=== PATIENT | female | born 1945 | race Caucasian/White ===

== ENCOUNTER → 2017-09-07 | Outpatient (CLI) | payer BC, MEDICARE ==
[~2017-09-07] MED LIST: AMLO10TA2 PO; BUME2TAB PO; CALC0.25 PO; COMB0.2S EACH EYE; DOCU1CAP26 PO; FURO20TA PO; HYDR-3516 PO; HYDR-3801 PO; METO50TA PO; ROSU20 PO
[2017-09-07 13:58] LABS: HEMATOCRIT 35.3 % (35.0-46.0); HEMOGLOBIN 12.2 GM/DL (11.6-15.3); MEAN CELL VOLUME 93.6 FL (80.0-100.0); MEAN CORPUSCULAR HEMOGLOBIN 32.2 PG (27.0-34.0); MEAN CORPUSCULAR HGB CONC 34.5 % (32.0-36.0); MEAN PLATELET VOLUME 8.3 FL (7.0-11.0); PLATELET COUNT 244 TH/MM3 (150-450); RED BLOOD COUNT 3.77 MIL/MM3 (4.00-5.30); RED CELL DISTRIBUTION WIDTH 13.3 % (11.6-17.2); WHITE BLOOD COUNT 7.6 TH/MM3 (4.0-11.0)
[2017-09-07 14:02] LABS: BILIRUBIN, URINE NEG (NEG); BLOOD, URINE NEG (NEG); GLUCOSE,URINE NEG (NEG); HYALINE CAST, URINE 1 /lpf (RARE); KETONE, URINE NEG (NEG); NITRITE,URINE NEG (NEG); SQUAMOUS EPITHELIAL CELL URINE 4 /hpf (0-5); URINE COLOR LIGHT-YELLOW (YELLW/STRAW); URINE LEUKOCYTE ESTERASE NEG (NEG)
[2017-09-07 14:22] LABS: ALBUMIN 3.7 GM/DL (3.4-5.0); AST (GOT) 56 U/L (15-37); BICARBONATE 23.9 MEQ/L (21.0-32.0); BLOOD UREA NITROGEN 33 MG/DL (7-18); CHLORIDE 97 MEQ/L (98-107); GLOMERULAR FILTRATION RATE 14 ML/MIN (>89); GLUCOSE,FASTING 87 MG/DL (74-99); SODIUM (NA) 132 MEQ/L (136-145)
[2017-09-07 14:25] LABS: ALKALINE PHOSPHATASE 88 U/L (45-117); ALT (GPT) 48 U/L (10-53); TOTAL BILIRUBIN ADULT 0.4 MG/DL (0.2-1.0); TOTAL PROTEIN 7.7 GM/DL (6.4-8.2)
--- NOTE | 2017-09-09 01:17 | EKG ---
Date Performed: 09/07/2017 Time Performed: 13:10:25 PTAGE: 71 years EKG: SINUS BRADYCARDIA POSSIBLE LEFT ATRIAL ENLARGEMENT NONSPECIFIC T-WAVE ABNORMALITY BORDERLIN E ECG NO PREVIOUS TRACING DOCTOR: Daniel Tavares Interpretating Date/Time 09/09/2017 01:15:17
== END ==
LOC: CPRE 12:44
PROVIDERS: ATTEND Thoracic Surgery (Cardiothoracic Vascular Surgery)
DX: Z01.812 Encounter for preprocedural laboratory examination (principal); Z01.810 Encounter for preprocedural cardiovascular examination; C34.91 Malignant neoplasm of unspecified part of right bronchus or lung; R94.31 Abnormal electrocardiogram [ECG] [EKG]
CPT/HCPCS: 36415; 80053; 81001; 85027; 85610; 85730; 93005

== ENCOUNTER 2017-09-11 05:16 | Inpatient (IN) | payer MEDICARE ==
[2017-09-11] VITALS (12 sets, daily range): BP systolic 105–153; BP diastolic 67–72; PULSE 46–53; RESP 16–18; TEMP 97.7; O2SAT 97–99
[~2017-09-11] VITALS: Ht 158.8 cm; Wt 55.0 kg
[~2017-09-11 05:16] MED LIST changes: -BUME2TAB PO; -DOCU1CAP26 PO; -HYDR-3516 PO; -HYDR-3801 PO
[2017-09-11] MEDS ORDERED: LACTATED RINGER'S 1000 ML IV PRN (05:45)
[2017-09-11] MEDS ORDERED: METOPROLOL TARTRATE 25 MG TAB PO PRN (05:45)
[2017-09-11] MEDS ORDERED: SODIUM CHLORID 0.9% 500 ML IV PRN (05:45)
[2017-09-11] MEDS ORDERED: POVIDONE IODINE 5% (ANTISEPSIS KIT) 4 APPLICATIONS EACH NARE PRN (05:45)
[2017-09-11] MEDS ORDERED: CHLORHEXIDINE GLUCONATE 2 % 1 PACK (2 CLOTHS) TOPICAL PRN (05:45)
[2017-09-11] MEDS ORDERED: ACETAMINOPHEN 1000 MG/100 ML 100 ML IV ONE (07:04)
[2017-09-11] MEDS ORDERED: SUGAMMADEX SODIUM 200 MG/2 ML VIAL IV PUSH ONE (07:04)
[2017-09-11] MEDS ORDERED: ceFAZolin 2 GM PREMIX 50 ML ONE (08:22)
[2017-09-11] MEDS ORDERED: BUPIVACAINE LIPOSO PF 1.3% INJ 20 ML, DEXAMETHASONE INJ 4 MG, MORPHINE INJ 8 MG in SODI... IRRIGATION ONE (09:00)
[2017-09-11] MEDS ORDERED: Post-op Orders (for Pharmacy) OTHER ONE (10:00)
[2017-09-11] MEDS ORDERED: SODIUM CHLORIDE 0.9% FLUSH 10 ML FLUSH IV FLUSH PRN (10:00)
[2017-09-11] MEDS ORDERED: ONDANSETRON HCL 4 MG/2 ML VIAL IV PUSH PRN (10:00)
[2017-09-11] MEDS ORDERED: MAGNESIUM HYDROXIDE SUSP 30 ML CUP PO PRN (10:00)
[2017-09-11] MEDS ORDERED: RESP: ALBUTEROL 2.5 MG/3 ML NEB (PRN) NEB (10:00)
[2017-09-11] MEDS ORDERED: MORPHINE SULFATE 30 MG/30 ML PCA IV SCH (10:00)
[2017-09-11] MEDS ORDERED: ACETAMINOPHEN 325 MG TAB PO PRN (10:00)
[2017-09-11] MEDS ORDERED: NALOXONE HCL 0.4 MG/ML AMP IV PUSH PRN (10:00)
[2017-09-11] MEDS ORDERED: DO NOT ADM ANY ANTICOAGULANT DRUGS PRN (10:35)
[2017-09-11] MEDS ORDERED: *morphine SULFATE 10 MG/ML PERIprocedure ONLY ONE ×2 (10:42→10:52)
[2017-09-11] MEDS ORDERED: MIDAZOLAM HCL 2 MG/2 ML VIAL ONE (10:43)
--- NOTE | 2017-09-11 11:15 | RADRPT ---
EXAM DATE/TIME: 09/11/2017 10:39 [facility] COMPARISON: No previous studies available for comparison. INDICATIONS : Status-post Thoracotomy. MEDICAL HISTORY : None. SURGICAL HISTORY : Thoracotomy. ENCOUNTER: Initial ACUITY: 1 day PAIN SCORE: Non-responsive. LOCATION: Bilateral chest FINDINGS: A single AP portable view of the chest was obtained and demonstrates a right-sided chest tube in plac e with no visualized pneumothorax. Subcutaneous emphysema is noted over the right lateral chest wall. Multiple surgical clips are present in the right axilla. There are no confluent infiltrates or effus ions. The heart size is at the upper limits of normal. Atherosclerotic calcifications are present in the aorta. There are postsurgical changes in the right hilar region. CONCLUSION: 1. Status post right thoracotomy with chest tube in place and no visualized pneumothorax. 2. No acute cardiopulmonary disease. Gabriel Wolfe MD on September 11, 2017 at 11:11 Board Certified Radiologist. This report was verified electronically.
[2017-09-11] MEDS: RESP: ALBUTEROL 2.5 MG/3 ML NEB (SCH) NEB ×2 (11:45→19:54)
[2017-09-11] MEDS ORDERED: NORMOSOL R INJ 1,000 ML IV ONE (12:00)
[2017-09-11] MEDS ORDERED: PROPOFOL 200 MG/20 ML AMP IV ONE (12:00)
[2017-09-11] MEDS ORDERED: hydrALAZINE HCL 20 MG/ML VIAL IV ONE (12:00)
[2017-09-11] MEDS ORDERED: LIDOCAINE HCL 1% PF 5 ML SYRINGE OTHER ONE (12:00)
[2017-09-11] MEDS ORDERED: ROCURONIUM INJ 50 MG/5 ML SYRINGE IV PUSH ONE (12:00)
[2017-09-11] MEDS ORDERED: ONDANSETRON HCL 4 MG/2 ML VIAL IV ONE (12:00)
[2017-09-11] MEDS ORDERED: GLYCOPYRROLATE 1 MG/5 ML SYRINGE IV PUSH ONE (12:00)
--- NOTE | 2017-09-11 12:33 | PD.OP ---
cc: Tristin Ray MD; Mitra Marcus MD Operative Report Date of Surgery: Sep 11, 2017 Preoperative Diagnosis: Postoperative Diagnosis: Procedure: 1. Right Posterolateral Muscle Sparing Thoracotomy 2. Right Middle Lobectomy 3. Mediastinal Lymph Node Dissection 4. Lysis of Adhesions 5. Intercostal Nerve Block Surgeon: Tristin Ray House Fellow(s): Osman Barkley Operation and Findings: PREOPERATIVE DIAGNOSIS 1. Right Lung Cancer 2. COPD 3. Chronic Kidney Disease 4. Breast Cancer POSTOPERATIVE DIAGNOSIS 1. Right Middle Lobe Lung Cancer 2. COPD 3. Chronic Kidney Disease 4. Breast Cancer 5. Radiation Induced Adhesions PROCEDURES 1. Right Posterolateral Muscle Sparing Thoracotomy 2. Right Middle Lobectomy 3. Mediastinal Lymph Node Dissection 4. Lysis of Adhesions 5. Intercostal Nerve Block SURGEON Tristin Ray MD TELEMEDICINE PHYSICIAN TRACIE Zarate ANESTHESIA General double-lumen endotracheal. LEAD CARE MANAGER RAMON Jacobs MD DRAINS [address] COUNTS Needle, sponge, and instrument counts were correct. COMPLICATIONS None. INDICATION FOR PROCEDURE The patient is a 71 yo lady with right mid lung malignancy presenting for surgical resection of above pathology. DESCRIPTION OF PROCEDURE The patient was brought to the operating suite and placed in supine position. Following satisfactory induction of general double-lumen endotracheal anesthesia , the patient was placed in the left lateral decubitus position. The right chest and surrounding area was then prepped and draped in the usual sterile fashion. A standard muscle-sparing posterolateral thoracotomy was performed and the serratus anterior muscle spared. The pleural space was entered. Exploration of the chest revealed significant radiation pneumonitis involving the right middle and upper lobes towards the hilum with associated mediastinal and hilar adhesions. The adhesions were divided and the entire right lung freed circumferentially. The mass could be easily palpated in the middle lobe. The inferior pulmonary ligament was divided. The pulmonary arterial supply to the middle lobe was identified, dissected free and divided as was the pulmonary venous supply. The bronchus was then dissected free, clamped and the remaining lung was insufflated without any difficulty. Lymph node dissections of level 3, 4, 7, 9 and 10 were performed along with the course of this removal. Some of these were retained with the specimen. Specimen was removed from the chest. The remaining lung was submerged under sterile water and inflated. Frozen section analysis revealed clear margins. No air leaks were identified. At this point the closure was undertaken. A 32-Irish chest tube was placed. Intercostal nerve block was performed at the level of the incision and 3 rib spaces above and below using Exparel with Decadron solution. The pericostal space was approximated with interrupted #1 Vicryl sutures in a pericostal fashion. The serratus fascia and Latissimus dorsi were closed with running 0-Vicryl and the remaining wounds closed with 3-0, and 4-0 Monocryl. The patient tolerated the procedure well and postoperatively went to the PACU in stable condition. Tristin Ray MD Sep 11, 2017 12:33
[2017-09-11] MEDS ORDERED: DIMETHICONE/OXYBENZONE/PADMIATE LIP BALM 4.25 GM TOPICAL ONE (12:57)
[2017-09-11] MEDS: PCA - TOTAL MG MORPHINE DELIVERED PER SHIFT SCH ×2 (14:00→22:00)
[2017-09-11] MEDS: ACETAMINOPHEN 1000 MG/100 ML 100 ML IV SCH ×2 (16:18→23:30)
[2017-09-11] MEDS: DOCUSATE CALCIUM 240 MG CAP PO SCH (21:00)
[2017-09-11] MEDS: TIMOLOL MALEATE 0.5% OPHT SOLN 5 ML BTL EACH EYE SCH (21:00)
[2017-09-11] MEDS: BRIMONIDINE TARTRATE 0.2% OPHT SOLN 5 ML BTL EACH EYE SCH (21:00)
[2017-09-11] MEDS: PANTOPRAZOLE SOD 40 MG DELAYED RELEASE TAB PO SCH (23:25)
[2017-09-11] MEDS: SODIUM CHLORIDE 0.9% FLUSH 10 ML FLUSH IV FLUSH SCH (23:31)
[2017-09-12] VITALS (29 sets, daily range): BP systolic 135–159; BP diastolic 51–69; PULSE 44–59; RESP 16–19; TEMP 97.5–98.6; O2SAT 92–99
[2017-09-12] MEDS: ACETAMINOPHEN 1000 MG/100 ML 100 ML IV SCH ×2 (03:00→09:25)
[2017-09-12] MEDS: RESP: ALBUTEROL 2.5 MG/3 ML NEB (SCH) NEB ×4 (03:00→19:58)
[2017-09-12 04:40] LABS: AUTOMATED NEUTROPHIL # 8.8 TH/MM3 (1.8-7.7); BASOPHIL % 0.3 % (0.0-2.0); HEMATOCRIT 32.5 % (35.0-46.0); HEMOGLOBIN 10.9 GM/DL (11.6-15.3); LYMPH % 5.2 % (9.0-44.0); LYMPHOCYTE # 0.5 TH/MM3 (1.0-4.8); MEAN CORPUSCULAR HEMOGLOBIN 31.8 PG (27.0-34.0); MEAN CORPUSCULAR HGB CONC 33.4 % (32.0-36.0); MEAN PLATELET VOLUME 8.1 FL (7.0-11.0); MONO % 9.8 % (0.0-8.0); NEUT % 84.7 % (16.0-70.0); PLATELET COUNT 232 TH/MM3 (150-450); RED BLOOD COUNT 3.42 MIL/MM3 (4.00-5.30); RED CELL DISTRIBUTION WIDTH 13.4 % (11.6-17.2); WHITE BLOOD COUNT 10.3 TH/MM3 (4.0-11.0)
--- NOTE | 2017-09-12 04:45 | RADRPT ---
EXAM DATE/TIME: 09/12/2017 04:05 [facility] COMPARISON: CHEST SINGLE AP, September 11, 2017, 10:39. INDICATIONS : Shortness of breath, possible pulmonary disease. MEDICAL HISTORY : None. SURGICAL HISTORY : Thoracotomy ENCOUNTER: Subsequent ACUITY: 2 days PAIN SCORE: 3/10 LOCATION: Right chest FINDINGS: Right-sided chest tube and subcutaneous emphysema again seen. Right axillary clips. I do not see a pn eumothorax. Multiple right-sided rib fractures are noted. There is atelectasis at the left lung base. Cardiomegaly, and right hilar enlargement noted unchanged. CONCLUSION: No significant change has occurred. Elvin Ríos MD on September 12, 2017 at 4:41 Board Certified Radiologist. This report was verified electronically.
[2017-09-12 05:07] LABS: CALCIUM 8.4 MG/DL (8.5-10.1); CREATININE 3.52 MG/DL (0.50-1.00)
[2017-09-12] MEDS: FUROSEMIDE 20 MG TAB PO SCH ×3 (09:00→09:37)
[2017-09-12] MEDS: TIMOLOL MALEATE 0.5% OPHT SOLN 5 ML BTL EACH EYE SCH ×2 (09:00→20:57)
[2017-09-12] MEDS: BRIMONIDINE TARTRATE 0.2% OPHT SOLN 5 ML BTL EACH EYE SCH ×2 (09:00→20:57)
[2017-09-12] MEDS: METOPROLOL TARTRATE 50 MG TAB PO SCH (09:00)
[2017-09-12] MEDS: ATORVASTATIN 40 MG TAB PO SCH (09:25)
[2017-09-12] MEDS: SODIUM CHLORIDE 0.9% FLUSH 10 ML FLUSH IV FLUSH SCH ×2 (09:26→20:57)
--- NOTE | 2017-09-12 10:19 | PD.CAR.PN ---
CVT Progress Note Subjective/Hospital Course: 71 yo lady with newly diagnosed right middle lobe lung cancer 2/2 PROCEDURES 1. Right Posterolateral Muscle Sparing Thoracotomy 2. Right Middle Lobectomy 3. Mediastinal Lymph Node Dissection 4. Lysis of Adhesions 5. Intercostal Nerve Block 2/3 Doing well Small intermittent air-leak with valsalva Continue Ct to suction Ambulate Objective: Vital Signs Date Time Temp Pulse Resp B/P (MAP) Pulse Ox O2 Delivery O2 Flow Rate FiO2 09/12/17 08:56 95 21 09/12/17 05:00 46 09/12/17 04:00 48 09/12/17 03:00 98.1 52 16 153/68 (96) 99 09/12/17 03:00 49 09/12/17 02:00 48 09/12/17 01:00 48 09/12/17 00:08 97.5 51 16 153/51 (85) 99 09/12/17 00:00 50 09/11/17 23:00 49 09/11/17 22:00 46 09/11/17 22:00 16 09/11/17 21:00 46 09/11/17 20:15 97.7 47 16 153/72 (99) 98 09/11/17 20:00 50 09/11/17 19:57 99 Nasal Cannula 2.00 09/11/17 19:00 49 09/11/17 18:01 51 09/11/17 17:00 46 09/11/17 16:00 46 09/11/17 15:01 97.7 53 18 105/67 (80) 97 09/11/17 15:00 50 09/11/17 14:00 16 09/11/17 13:30 46 16 114/55 (74) 96 Nasal Cannula 2 09/11/17 13:00 50 16 135/63 (87) 96 Nasal Cannula 2 09/11/17 12:30 48 16 102/52 (69) 96 Nasal Cannula 2 09/11/17 12:00 46 16 95/50 (65) 96 Nasal Cannula 2 09/11/17 11:45 46 16 95/51 (66) 96 Nasal Cannula 2 09/11/17 11:30 48 16 100/53 (69) 96 Nasal Cannula 2 09/11/17 11:15 48 16 94/53 (67) 96 Nasal Cannula 2 09/11/17 11:00 52 16 103/57 (72) 97 Nasal Cannula 2 09/11/17 10:45 56 16 126/60 (82) 97 Nasal Cannula 2 09/11/17 10:35 97.4 54 16 123/58 (79) 100 Nasal Cannula 2 Labs: Laboratory Tests Test 09/12/17 04:16 White Blood Count 10.3 TH/MM3 (4.0-11.0) Red Blood Count 3.42 MIL/MM3 (4.00-5.30) Hemoglobin 10.9 GM/DL (11.6-15.3) Hematocrit 32.5 % (35.0-46.0) Mean Corpuscular Volume 95.0 FL (80.0-100.0) Mean Corpuscular Hemoglobin 31.8 PG (27.0-34.0) Mean Corpuscular Hemoglobin Concent 33.4 % (32.0-36.0) Red Cell Distribution Width 13.4 % (11.6-17.2) Platelet Count 232 TH/MM3 (150-450) Mean Platelet Volume 8.1 FL (7.0-11.0) Neutrophils (%) (Auto) 84.7 % (16.0-70.0) Lymphocytes (%) (Auto) 5.2 % (9.0-44.0) Monocytes (%) (Auto) 9.8 % (0.0-8.0) Eosinophils (%) (Auto) 0.0 % (0.0-4.0) Basophils (%) (Auto) 0.3 % (0.0-2.0) Neutrophils # (Auto) 8.8 TH/MM3 (1.8-7.7) Lymphocytes # (Auto) 0.5 TH/MM3 (1.0-4.8) Monocytes # (Auto) 1.0 TH/MM3 (0-0.9) Eosinophils # (Auto) 0.0 TH/MM3 (0-0.4) Basophils # (Auto) 0.0 TH/MM3 (0-0.2) CBC Comment DIFF FINAL Differential Comment Blood Urea Nitrogen 40 MG/DL (7-18) Creatinine 3.52 MG/DL (0.50-1.00) Random Glucose 106 MG/DL (74-106) Calcium Level 8.4 MG/DL (8.5-10.1) Sodium Level 133 MEQ/L (136-145) Potassium Level 4.3 MEQ/L (3.5-5.1) Chloride Level 97 MEQ/L (98-107) Carbon Dioxide Level 24.0 MEQ/L (21.0-32.0) Anion Gap 12 MEQ/L (5-15) Estimat Glomerular Filtration Rate 13 ML/MIN (>89) Result Diagram: 09/12/17 0416 09/12/17 0416 (1) Lung cancer, middle lobe (2) S/P lobectomy of lung (3) CKD (chronic kidney disease) Tristin Ray MD Sep 12, 2017 10:19
[2017-09-12] MEDS: PCA - TOTAL MG MORPHINE DELIVERED PER SHIFT SCH ×2 (14:00→22:10)
[2017-09-12] MEDS: PANTOPRAZOLE SOD 40 MG DELAYED RELEASE TAB PO SCH (20:57)
[2017-09-12] MEDS: DOCUSATE CALCIUM 240 MG CAP PO SCH (20:57)
[2017-09-13] VITALS (28 sets, daily range): BP systolic 133–178; BP diastolic 2–77; PULSE 47–62; RESP 18–22; TEMP 97.4–98.3; O2SAT 92–98
[2017-09-13] MEDS: RESP: ALBUTEROL 2.5 MG/3 ML NEB (SCH) NEB ×4 (03:51→20:05)
[2017-09-13] MEDS: PCA - TOTAL MG MORPHINE DELIVERED PER SHIFT SCH ×3 (06:00→22:00)
--- NOTE | 2017-09-13 08:51 | PD.CAR.PN ---
CVT Progress Note Subjective/Hospital Course: 71 yo lady with newly diagnosed right middle lobe lung cancer 2/2 PROCEDURES 1. Right Posterolateral Muscle Sparing Thoracotomy 2. Right Middle Lobectomy 3. Mediastinal Lymph Node Dissection 4. Lysis of Adhesions 5. Intercostal Nerve Block 09/12 Doing well Small intermittent air-leak with valsalva Continue Ct to suction Ambulate 09/13 No air-leak. Place on water-seal Likely remove CT tomorrow Awaiting pathology report Gentle diuresis Objective: Vital Signs Date Time Temp Pulse Resp B/P (MAP) Pulse Ox O2 Delivery O2 Flow Rate FiO2 09/13/17 06:04 56 09/13/17 06:00 18 09/13/17 05:48 57 09/13/17 04:06 53 09/13/17 03:18 52 09/13/17 03:18 98.3 52 18 151/67 (95) 92 09/13/17 02:14 50 09/13/17 01:14 51 09/13/17 00:21 48 09/12/17 23:32 98.4 51 19 137/65 (89) 92 09/12/17 23:32 51 09/12/17 22:10 18 09/12/17 22:00 51 09/12/17 21:37 49 09/12/17 20:10 58 09/12/17 19:58 94 21 09/12/17 19:10 98.6 49 18 159/69 (99) 96 09/12/17 19:10 51 09/12/17 18:03 50 09/12/17 17:00 56 09/12/17 16:00 58 09/12/17 15:16 97.7 58 19 151/67 (95) 94 09/12/17 15:00 59 09/12/17 14:00 46 09/12/17 13:00 44 09/12/17 12:00 50 09/12/17 11:30 97.9 45 19 135/62 (86) 95 09/12/17 11:00 46 09/12/17 10:00 48 09/12/17 09:00 50 09/12/17 08:56 95 21 Result Diagram: 09/12/17 0416 09/12/17 0416 (1) Lung cancer, middle lobe (2) S/P lobectomy of lung (3) CKD (chronic kidney disease) Tristin Ray MD Sep 13, 2017 08:51
[2017-09-13] MEDS: METOPROLOL TARTRATE 50 MG TAB PO SCH (09:00)
[2017-09-13] MEDS ORDERED: FUROSEMIDE 20 MG/2 ML VIAL IV PUSH ONE (09:15)
[2017-09-13] MEDS: CALCITRIOL 0.25 MCG CAP PO SCH (09:19)
[2017-09-13] MEDS: ATORVASTATIN 40 MG TAB PO SCH (09:20)
[2017-09-13] MEDS: SODIUM CHLORIDE 0.9% FLUSH 10 ML FLUSH IV FLUSH SCH ×2 (09:21→20:44)
[2017-09-13] MEDS: BRIMONIDINE TARTRATE 0.2% OPHT SOLN 5 ML BTL EACH EYE SCH ×2 (09:28→20:44)
[2017-09-13] MEDS: TIMOLOL MALEATE 0.5% OPHT SOLN 5 ML BTL EACH EYE SCH ×2 (09:29→20:44)
[2017-09-13] MEDS: cloNIDine HCL 0.1 MG TAB PO SCH (17:10)
[2017-09-13] MEDS: ACETAMINOPHEN/HYDROcodone 325 MG/5 MG TAB PO PRN ×2 (17:15→20:44)
[2017-09-13] MEDS ORDERED: cloNIDine HCL 0.1 MG TAB PO ONE (20:00)
[2017-09-13] MEDS: DOCUSATE CALCIUM 240 MG CAP PO SCH (20:43)
[2017-09-13] MEDS: PANTOPRAZOLE SOD 40 MG DELAYED RELEASE TAB PO SCH (20:43)
[2017-09-14] VITALS (25 sets, daily range): BP systolic 122–167; BP diastolic 60–74; PULSE 46–65; RESP 18–20; TEMP 97.5–98.4; O2SAT 92–99
[2017-09-14] MEDS: RESP: ALBUTEROL 2.5 MG/3 ML NEB (SCH) NEB ×4 (03:13→20:34)
[2017-09-14] MEDS: PCA - TOTAL MG MORPHINE DELIVERED PER SHIFT SCH (06:00)
[2017-09-14] MEDS: cloNIDine HCL 0.1 MG TAB PO SCH ×3 (08:53→17:13)
[2017-09-14] MEDS: ATORVASTATIN 40 MG TAB PO SCH (08:53)
[2017-09-14] MEDS: METOPROLOL TARTRATE 50 MG TAB PO SCH (08:53)
[2017-09-14] MEDS: FUROSEMIDE 20 MG TAB PO SCH (08:53)
[2017-09-14] MEDS: BRIMONIDINE TARTRATE 0.2% OPHT SOLN 5 ML BTL EACH EYE SCH ×2 (08:54→20:20)
[2017-09-14] MEDS: TIMOLOL MALEATE 0.5% OPHT SOLN 5 ML BTL EACH EYE SCH ×2 (08:54→20:20)
[2017-09-14] MEDS: SODIUM CHLORIDE 0.9% FLUSH 10 ML FLUSH IV FLUSH SCH ×2 (08:55→20:20)
--- NOTE | 2017-09-14 12:20 | HHI.FF ---
Face to Face Verification Diagnosis: (1) Lung cancer, middle lobe (2) S/P lobectomy of lung Home Health Nursing Order: Wound care and dressing changes Nursing assessment with vital signs I have seen patient Radha Murphy on 09/14/17. My clinical findings support the need for the requested home health care services because: Deconditioned w/ increased weakness I certify that my clinical findings support that this patient is homebound because: Post-op weakness Tristin Ray MD Sep 14, 2017 12:20
--- NOTE | 2017-09-14 12:27 | PD.CAR.PN ---
CVT Progress Note Subjective/Hospital Course: 71 yo lady with newly diagnosed right middle lobe lung cancer 2/2 PROCEDURES 1. Right Posterolateral Muscle Sparing Thoracotomy 2. Right Middle Lobectomy 3. Mediastinal Lymph Node Dissection 4. Lysis of Adhesions 5. Intercostal Nerve Block 2/ Doing well Small intermittent air-leak with valsalva Continue Ct to suction Ambulate 09/13 No air-leak. Place on water-seal Likely remove CT tomorrow Awaiting pathology report Gentle diuresis 09/14 Doing well D/C CT Pathology still pending Objective: Vital Signs Date Time Temp Pulse Resp B/P (MAP) Pulse Ox O2 Delivery O2 Flow Rate FiO2 09/14/17 12:14 46 09/14/17 11:09 97.7 48 18 123/60 (81) 92 09/14/17 11:09 46 09/14/17 10:01 48 09/14/17 09:37 46 09/14/17 08:30 97.5 51 18 167/74 (105) 99 09/14/17 08:30 53 09/14/17 08:30 99 Nasal Cannula 2.00 09/14/17 07:49 Nasal Cannula 2.00 09/14/17 06:06 53 09/14/17 06:00 20 09/14/17 05:31 50 09/14/17 04:15 49 09/14/17 03:14 98.4 55 19 150/67 (94) 98 09/14/17 03:14 48 09/14/17 02:48 50 09/14/17 01:08 51 09/14/17 00:01 50 09/13/17 23:38 47 09/13/17 23:38 98.2 50 20 133/63 (86) 97 09/13/17 22:55 47 09/13/17 22:00 19 09/13/17 21:40 50 09/13/17 20:10 59 09/13/17 20:09 96 Nasal Cannula 3.00 09/13/17 19:20 96 Nasal Cannula 2.00 09/13/17 19:10 49 09/13/17 19:10 97.8 55 19 168/73 (104) 98 09/13/17 18:01 60 09/13/17 17:00 50 09/13/17 16:00 50 09/13/17 15:00 98.3 62 18 167/2 (56) 92 09/13/17 15:00 58 09/13/17 14:06 50 09/13/17 14:00 18 09/13/17 13:00 56 Result Diagram: 09/12/17 0416 09/12/17 0416 (1) Lung cancer, middle lobe (2) S/P lobectomy of lung (3) CKD (chronic kidney disease) Tristin Ray MD Sep 14, 2017 12:27
[2017-09-14] MEDS ORDERED: HYDR-3516 PO (14:10)
[2017-09-14] MEDS ORDERED: DOCU1CAP26 PO (14:10)
[2017-09-14] MEDS: DOCUSATE CALCIUM 240 MG CAP PO SCH (20:20)
[2017-09-14] MEDS: PANTOPRAZOLE SOD 40 MG DELAYED RELEASE TAB PO SCH (20:20)
[2017-09-15] VITALS (13 sets, daily range): BP systolic 137–165; BP diastolic 64–73; PULSE 47–58; RESP 18; TEMP 98–98.3; O2SAT 92–94
[2017-09-15] MEDS: RESP: ALBUTEROL 2.5 MG/3 ML NEB (SCH) NEB (03:30)
--- NOTE | 2017-09-15 07:39 | HHI.DS ---
Discharge Summary Admission Date Sep 11, 2017 at 05:16 Discharge Date: Sep 15, 2017 Admitting Diagnosis CBC/BMP: 09/12/17 0416 09/12/17 0416 Hospital Course 71 yo lady with newly diagnosed right middle lobe lung cancer 2/2 PROCEDURES 1. Right Posterolateral Muscle Sparing Thoracotomy 2. Right Middle Lobectomy 3. Mediastinal Lymph Node Dissection 4. Lysis of Adhesions 5. Intercostal Nerve Block 2/ Doing well Small intermittent air-leak with valsalva Continue Ct to suction Ambulate 09/13 No air-leak. Place on water-seal Likely remove CT tomorrow Awaiting pathology report Gentle diuresis 09/14 Doing well D/C CT Pathology still pending 09/15 Discharge home Pt Condition on Discharge: Good Discharge Disposition: Disch w/ Home Health Serv Discharge Instructions DIET: Follow Instructions for: As Tolerated, No Restrictions Activities you can perform: Full Weight Bearing, Shower Only-No Bath Activities to avoid: Lifting/Bending, Bathing, Driving Follow up Referrals: Appointment for Follow Up - 1 Week with Tristin Ray MD PCP Follow-up - 4 Weeks Pulmonology - 4 Weeks @ [facility] New Medications: Docusate Calcium (Sm Stool Softener) 240 Mg Cap 240 MG PO HS for Constipation, #30 CAP Hydrocodone/Acetaminophen (Hydrocodone-Acetamin 5-325 mg) 5 Mg-325 Mg Tablet 1 TAB PO Q3H PRN for PAIN SCALE 3 TO 5, #60 TAB Continued Medications: Amlodipine (Amlodipine) 10 Mg Tab 10 MG PO DAILY for Blood Pressure Management, #30 TAB 0 Refills Brimonidine-Timolol Opth Drops (Combigan Opth Drops) 0.2-0.5% Soln 1 DROP EACH EYE Q12HR for Glaucoma, BOTTLE 0 Refills Calcitriol (Calcitriol) 0.25 Mcg Cap 0.25 MCG PO EVERY OTHER DAY for Calcium Supplement, #30 CAP 0 Refills Furosemide (Furosemide) 20 Mg Tab 20 MG PO DAILY, #30 TAB 0 Refills Metoprolol Tartrate (Metoprolol Tartrate) 50 Mg Tab 50 MG PO DAILY, #30 TAB 0 Refills Rosuvastatin (Crestor) 20 Mg Tab 20 MG PO DAILY for Cholesterol Management, #30 TAB 0 Refills Tristin Ray MD Sep 15, 2017 07:39
[2017-09-15] MEDS: cloNIDine HCL 0.1 MG TAB PO SCH (08:56)
[2017-09-15] MEDS: ATORVASTATIN 40 MG TAB PO SCH (08:56)
[2017-09-15] MEDS: FUROSEMIDE 20 MG TAB PO SCH (08:56)
[2017-09-15] MEDS: METOPROLOL TARTRATE 50 MG TAB PO SCH ×2 (08:56→09:00)
[2017-09-15] MEDS: CALCITRIOL 0.25 MCG CAP PO SCH (08:57)
[2017-09-15] MEDS: SODIUM CHLORIDE 0.9% FLUSH 10 ML FLUSH IV FLUSH SCH (08:57)
[2017-09-15] MEDS: BRIMONIDINE TARTRATE 0.2% OPHT SOLN 5 ML BTL EACH EYE SCH (08:58)
[2017-09-15] MEDS: TIMOLOL MALEATE 0.5% OPHT SOLN 5 ML BTL EACH EYE SCH (08:58)
== END 2017-09-15 11:35 | disposition home health service (06) | DRG 164 ==
LOC: HSDI 05:16 → HCPC 14:30
PROVIDERS: ADMIT Thoracic Surgery (Cardiothoracic Vascular Surgery); ATTEND Thoracic Surgery (Cardiothoracic Vascular Surgery)
PROC: 07B70ZX Excision of Thorax Lymphatic, Open Approach, Diagnostic (ICD-10-PCS; 2017-09-11)
PROC: 3E0T3BZ Introduction of Anesthetic Agent into Peripheral Nerves and Plexi, Percutaneous Approach (ICD-10-PCS; 2017-09-11)
PROC: 0W9930Z Drainage of Right Pleural Cavity with Drainage Device, Percutaneous Approach (ICD-10-PCS; 2017-09-11)
PROC: 0BTD0ZZ Resection of Right Middle Lung Lobe, Open Approach (ICD-10-PCS; principal; 2017-09-11 07:44)
DX: C34.2 Malignant neoplasm of middle lobe, bronchus or lung (principal); J70.0 Acute pulmonary manifestations due to radiation; J44.9 Chronic obstructive pulmonary disease, unspecified; J98.4 Other disorders of lung; N18.9 Chronic kidney disease, unspecified; Z85.3 Personal history of malignant neoplasm of breast; Y84.2 Radiological procedure and radiotherapy as the cause of abnormal reaction of the patient, or of later complication, without mention of misadventure at the time of the procedure; Z87.891 Personal history of nicotine dependence
CPT/HCPCS: 71045; 80048; 85025; 86850; 86900; 86901; 86920; 88307; 88331; 88341; 88342; 94150; 94640; 94664; C9290; J0131; J0360; J0690; J1100; J1940; J2250; J2270; J2405; J3010; J7120; J7613